=== PATIENT | female | born 1985 | race Two or more races ===

== ENCOUNTER 2017-09-27 16:13 | Emergency (ER) | payer SELFPAY ==
[~2017-09-27] VITALS: Ht 172.7 cm; Wt 99.8 kg
[2017-09-27 16:20] VITALS: BP 123/66
--- NOTE | 2017-09-27 16:30 | NUR ---
SEEN BY DR GALAVIZ,VERBALIZED UNDERSTANDING OF ACI
== END 2017-09-27 16:32 | disposition home or self-care (01) ==
LOC: ER 16:15
DX: F41.9 Anxiety disorder, unspecified (principal)
CPT/HCPCS: 99283; A4606; Z7610

== ENCOUNTER 2018-01-19 19:22 | Emergency (ER) | payer SELFPAY ==
[~2018-01-19] VITALS: Ht 172.7 cm; Wt 90.7 kg
[2018-01-19 19:25] VITALS: BP 123/93
--- NOTE | 2018-01-19 19:30 | NUR ---
PT BIB [facility] AND NO SOPHIA ROSAS. PT IS NOT IN CUSTODY. PT IS AA&O X4. NAD NOTED.
== END 2018-01-19 19:55 | disposition home or self-care (01) ==
LOC: ER 19:24
DX: Z00.8 Encounter for other general examination (principal); Z60.2 Problems related to living alone
CPT/HCPCS: A4606; Z7610